=== PATIENT | female | born 1950 | race Caucasian/White ===

== ENCOUNTER 2021-08-21 21:27 | Emergency (ER) | payer OTHER ==
[~2021-08-21 21:27] MED LIST: ASPIRIN EC81 MG PO; CLOPIDOGREL75 MG PO; COZAAR 50MG TAB50 MG PO; CRESTOR40 MG PO; ELIQUIS 5 MG TAB5 MG PO; FAMOTIDINE40 MG PO; FISH OIL 1,0001 EACH PO; IMDUR ER TAB 3030 MG PO; OCUVITE EYE PL1 EACH PO; OMEPRAZOLE20 MG PO
[2021-08-21 23:02] LABS: HEMOGLOBIN 12.7 gm/dl (12.3-15.3); RED BLOOD COUNT 4.29 M/UL (4.00-5.10); WHITE BLOOD COUNT 8.5 K/UL (4.5-11.0)
[2021-08-21 23:23] LABS: BUN/CREATININE RATIO 9 (0-10)
== END 2021-08-22 02:25 | disposition home or self-care (01) ==
LOC: ER1 21:27
PROVIDERS: Physician Assistant
DX: I10 Essential (primary) hypertension (principal)
CPT/HCPCS: 71045; 80053; 82550; 82553; 83874; 83880; 84484; 85025; 93005; 99284

== ENCOUNTER → 2021-09-05 | Outpatient (CLI) | payer OTHER | LOC: US 14:36 → MAMO 15:30 | DX: Z12.31 Encounter for screening mammogram for malignant neoplasm of breast (principal); I25.10 Atherosclerotic heart disease of native coronary artery without angina pectoris; R42 Dizziness and giddiness | CPT/HCPCS: 77063; 77067; 93880 ==

== ENCOUNTER → 2021-09-18 | Outpatient (CLI) | payer OTHER | LOC: HEART 5 09:00 | DX: I48.91 Unspecified atrial fibrillation (principal) ==

== ENCOUNTER → 2022-02-13 | Outpatient (CLI) | payer OTHER | LOC: EXRD 13:21 | DX: M79.604 Pain in right leg (principal); M79.605 Pain in left leg; I70.213 Atherosclerosis of native arteries of extremities with intermittent claudication, bilateral legs | CPT/HCPCS: 93925 ==

== ENCOUNTER → 2022-02-17 | Outpatient (CLI) | payer OTHER | LOC: KOH-I 13:17 | DX: Z87.891 Personal history of nicotine dependence (principal); R91.1 Solitary pulmonary nodule | CPT/HCPCS: 71271 ==

== ENCOUNTER → 2022-04-02 | Outpatient (CLI) | payer OTHER | LOC: US 15:00 | DX: R22.43 Localized swelling, mass and lump, lower limb, bilateral (principal) | CPT/HCPCS: 93971 ==

== ENCOUNTER → 2022-05-21 | Outpatient (CLI) | payer OTHER | LOC: CT 14:19 | DX: I70.213 Atherosclerosis of native arteries of extremities with intermittent claudication, bilateral legs (principal); J44.9 Chronic obstructive pulmonary disease, unspecified; I10 Essential (primary) hypertension | CPT/HCPCS: 36415; 75635; 82565; 84520; Q9967 ==